=== PATIENT | male | born 1995 | race Asian ===

== ENCOUNTER 2018-03-24 11:43 | Emergency (ER) | payer OTHER ==
[~2018-03-24 11:43] MED LIST: AMOX-362 PO; [UNRECOGNIZED DRUG - OTHER]; [UNRECOGNIZED DRUG - OTHER]
--- NOTE | 2018-03-24 11:46 | ER Report ---
History and Physical Time Seen By MD: 11:46 HPI/ROS CHIEF COMPLAINT: Suicidal and homicidal ideation HISTORY OF PRESENT ILLNESS: This is a 22 year old male who presents to the ED in the custody of police for suicidal and homicidal ideation. 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 According to the PD he did state that he said he was going to slit his professors throat, or stab his professor and then either slit his own throat or wait until the PD showed up and wait for them to shoot him. The thoughts of harming the professor has increased over the last 5-6 weeks. He arrives cooperative. He has been emergency detained by the PD. Patient has also had " two voices in my head", one "good and one bad". No nausea or vomiting. No fevers or chills. Patient states he did have suicidal thoughts when he was in high school in [place]. Denies acting on his suicidal or homicidal thoughts. Has been taking psych Meds from [facility]. REVIEW OF SYSTEMS: Constitutional: No fever, no chills. Eyes: No discharge. ENT: No sore throat. Cardiovascular: No chest pain, no palpitations. Respiratory: No cough, no shortness of breath. Gastrointestinal: No abdominal pain, no vomiting. Genitourinary: No hematuria. Musculoskeletal: No back pain. Skin: No rashes. Neurological: No headache. Psych: As above. Allergies: Coded Allergies: crab (Verified Allergy, Intermediate, EYES SWELL , 03/24/18) Home Meds Discontinued Reported Medications [mywell] No Conflict Check 05/10/17 [lactatam] No Conflict Check 05/10/17 Amoxicillin (AMOXICILLIN) 500 Mg Capsule, 1 CAP PO Q8H, #15 CAPSULE 05/10/17 Past Medical/Surgical History The patient has a past medical and surgical history of previous suicidal ideation. Reviewed Nurses Notes: Yes Hx Substance Use Disorder: No Constitutional Vital Sign - Last 24 Hours 03/24/18 03/24/18 11:46 13:31 Temp 98.6 Pulse 103 88 Resp 20 20 B/P (MAP) 139/83 123/94 (104) Pulse Ox 95 98 O2 Delivery Room Air Physical Exam General Appearance: The patient is alert, has no immediate need for airway protection and no signs of toxicity. Eyes: Pupils equal and round no pallor or injection. ENT, Mouth: Mucous membranes are moist. Respiratory: There are no retractions, lungs are clear to auscultation. Cardiovascular: Regular rate and rhythm. Gastrointestinal: Abdomen is soft and non tender, no masses, bowel sounds normal. Neurological: Alert and oriented 4. Moving all extremities. Following all commands. No focal neuro deficits. Skin: Warm and dry, no rashes. Musculoskeletal: Neck is supple non tender. Extremities are nontender, nonswollen and have full range of motion. Psych: Making good eye contact, good conversation, very forthcoming with his past medical history and his current thoughts. DIFFERENTIAL DIAGNOSIS: After history and physical exam differential diagnosis was considered for depression, anxiety, schizophrenia and bipolar disorder. Medical Decision Making Data Points Result Diagram: 03/24/18 1228 03/24/18 1228 Laboratory Hematology Test 03/24/18 12:28 03/24/18 13:01 Red Blood Count 5.22 M/uL (4.00-5.60) Mean Corpuscular Volume 92.0 fL (80.0-96.0) Mean Corpuscular Hemoglobin 30.9 pg (26.0-33.0) Mean Corpuscular Hemoglobin Concent 33.5 g/dL (32.0-36.0) Red Cell Distribution Width 12.4 % (11.5-14.5) Mean Platelet Volume 8.2 fL (7.2-11.1) Neutrophils (%) (Auto) 67.4 % (39.4-72.5) Lymphocytes (%) (Auto) 24.8 % (17.6-49.6) Monocytes (%) (Auto) 6.0 % (4.1-12.4) Eosinophils (%) (Auto) 1.0 % (0.4-6.7) Basophils (%) (Auto) 0.8 % (0.3-1.4) Nucleated RBC Relative Count (auto) 0.0 /100WBC Neutrophils # (Auto) 3.1 K/uL (2.0-7.4) Lymphocytes # (Auto) 1.1 K/uL (1.3-3.6) Monocytes # (Auto) 0.3 K/uL (0.3-1.0) Eosinophils # (Auto) 0.0 K/uL (0.0-0.5) Basophils # (Auto) 0.0 K/uL (0.0-0.1) Nucleated RBC Absolute Count (auto) 0.00 K/uL Sodium Level 138 mmol/L (137-145) Potassium Level 3.6 mmol/L (3.5-5.0) Chloride Level 103 mmol/L (98-107) Carbon Dioxide Level 27 mmol/L (22-30) Blood Urea Nitrogen 12 mg/dl (9-21) Creatinine 1.00 mg/dl (0.66-1.25) Glomerular Filtration Rate Calc > 60.0 Random Glucose 96 mg/dl (75-110) Calcium Level 9.0 mg/dl (8.4-10.2) Magnesium Level 1.9 mg/dl (1.7-2.2) Total Bilirubin 1.0 mg/dl (0.2-1.3) Aspartate Amino Transf (AST/SGOT) 24 U/L (0-35) Alanine Aminotransferase (ALT/SGPT) 24 U/L (0-56) Alkaline Phosphatase 59 U/L (0-126) Total Protein 7.5 g/dl (6.3-8.2) Albumin 4.1 g/dl (3.5-5.0) Thyroid Stimulating Hormone (TSH) 1.30 uIU/ml (0.46-4.68) Salicylates Level < 10 mg/L Salicylate Last Dose Date unk Acetaminophen Level < 10 ug/ml Serum Alcohol < 10 mg/dl Urine Color Yellow Urine Clarity Clear Urine pH 7.0 pH (4.8-9.5) Urine Specific [place] 1.012 Urine Protein Negative mg/dL (NEGATIVE) Urine Glucose (UA) Negative mg/dL (NEGATIVE) Urine Ketones Trace mg/dL (NEGATIVE) Urine Blood Negative (NEGATIVE) Urine Nitrite Negative (NEGATIVE) Urine Bilirubin Negative (NEGATIVE) Urine Urobilinogen Negative mg/dL (0.2-1.9) Urine Leukocyte Esterase Negative (NEGATIVE) Urine RBC <1 /HPF (0-2/HPF) Urine WBC <1 /HPF (0-5/HPF) Urine Squamous Epithelial Cells None /LPF (</=FEW) Urine Bacteria Negative /HPF (NONE-FEW) Urine Mucus None /HPF (NONE-FEW) Urine Opiates Screen Negative Urine Barbiturates Screen Negative Ur Tricyclic Antidepressants Screen Negative Urine Phencyclidine Screen Negative Urine Amphetamines Screen Negative Urine Benzodiazepines Screen Negative Urine Cocaine Screen Negative Urine Cannabinoids Screen Negative Chemistry Test 03/24/18 12:28 03/24/18 13:01 White Blood Count 4.6 k/uL (4.5-11.0) Red Blood Count 5.22 M/uL (4.00-5.60) Hemoglobin 16.1 g/dL (14.0-18.0) Hematocrit 48.0 % (42.0-52.0) Mean Corpuscular Volume 92.0 fL (80.0-96.0) Mean Corpuscular Hemoglobin 30.9 pg (26.0-33.0) Mean Corpuscular Hemoglobin Concent 33.5 g/dL (32.0-36.0) Red Cell Distribution Width 12.4 % (11.5-14.5) Platelet Count 226 K/uL (150-450) Mean Platelet Volume 8.2 fL (7.2-11.1) Neutrophils (%) (Auto) 67.4 % (39.4-72.5) Lymphocytes (%) (Auto) 24.8 % (17.6-49.6) Monocytes (%) (Auto) 6.0 % (4.1-12.4) Eosinophils (%) (Auto) 1.0 % (0.4-6.7) Basophils (%) (Auto) 0.8 % (0.3-1.4) Nucleated RBC Relative Count (auto) 0.0 /100WBC Neutrophils # (Auto) 3.1 K/uL (2.0-7.4) Lymphocytes # (Auto) 1.1 K/uL (1.3-3.6) Monocytes # (Auto) 0.3 K/uL (0.3-1.0) Eosinophils # (Auto) 0.0 K/uL (0.0-0.5) Basophils # (Auto) 0.0 K/uL (0.0-0.1) Nucleated RBC Absolute Count (auto) 0.00 K/uL Glomerular Filtration Rate Calc > 60.0 Calcium Level 9.0 mg/dl (8.4-10.2) Magnesium Level 1.9 mg/dl (1.7-2.2) Total Bilirubin 1.0 mg/dl (0.2-1.3) Aspartate Amino Transf (AST/SGOT) 24 U/L (0-35) Alanine Aminotransferase (ALT/SGPT) 24 U/L (0-56) Alkaline Phosphatase 59 U/L (0-126) Total Protein 7.5 g/dl (6.3-8.2) Albumin 4.1 g/dl (3.5-5.0) Thyroid Stimulating Hormone (TSH) 1.30 uIU/ml (0.46-4.68) Salicylates Level < 10 mg/L Salicylate Last Dose Date unk Acetaminophen Level < 10 ug/ml Serum Alcohol < 10 mg/dl Urine Color Yellow Urine Clarity Clear Urine pH 7.0 pH (4.8-9.5) Urine Specific [place] 1.012 Urine Protein Negative mg/dL (NEGATIVE) Urine Glucose (UA) Negative mg/dL (NEGATIVE) Urine Ketones Trace mg/dL (NEGATIVE) Urine Blood Negative (NEGATIVE) Urine Nitrite Negative (NEGATIVE) Urine Bilirubin Negative (NEGATIVE) Urine Urobilinogen Negative mg/dL (0.2-1.9) Urine Leukocyte Esterase Negative (NEGATIVE) Urine RBC <1 /HPF (0-2/HPF) Urine WBC <1 /HPF (0-5/HPF) Urine Squamous Epithelial Cells None /LPF (</=FEW) Urine Bacteria Negative /HPF (NONE-FEW) Urine Mucus None /HPF (NONE-FEW) Urine Opiates Screen Negative Urine Barbiturates Screen Negative Ur Tricyclic Antidepressants Screen Negative Urine Phencyclidine Screen Negative Urine Amphetamines Screen Negative Urine Benzodiazepines Screen Negative Urine Cocaine Screen Negative Urine Cannabinoids Screen Negative Toxicology Test 03/24/18 12:28 03/24/18 13:01 Salicylates Level < 10 mg/L Salicylate Last Dose Date unk Acetaminophen Level < 10 ug/ml Serum Alcohol < 10 mg/dl Urine Opiates Screen Negative Urine Barbiturates Screen Negative Ur Tricyclic Antidepressants Screen Negative Urine Phencyclidine Screen Negative Urine Amphetamines Screen Negative Urine Benzodiazepines Screen Negative Urine Cocaine Screen Negative Urine Cannabinoids Screen Negative Urinalysis Test 03/24/18 13:01 Urine Color Yellow Urine Clarity Clear Urine pH 7.0 pH (4.8-9.5) Urine Specific [place] 1.012 Urine Protein Negative mg/dL (NEGATIVE) Urine Glucose (UA) Negative mg/dL (NEGATIVE) Urine Ketones Trace mg/dL (NEGATIVE) Urine Blood Negative (NEGATIVE) Urine Nitrite Negative (NEGATIVE) Urine Bilirubin Negative (NEGATIVE) Urine Urobilinogen Negative mg/dL (0.2-1.9) Urine Leukocyte Esterase Negative (NEGATIVE) Urine RBC <1 /HPF (0-2/HPF) Urine WBC <1 /HPF (0-5/HPF) Urine Squamous Epithelial Cells None /LPF (</=FEW) Urine Bacteria Negative /HPF (NONE-FEW) Urine Mucus None /HPF (NONE-FEW) ED Course/Re-evaluation ED Course The patient was admitted to a room. History of this were obtained. Differential diagnoses were considered. Psych panel was obtained, studies unremarkable. A, negative tox screen. I did a pulled the detainment from the [facility] department, I did speak with Dr. Veras regarding the patient's case, she is accepted the patient to the behavioral health unit. Patient has been co operative while in the ED. Patient does understand that he has been detained, his rights have been read to him by the Police Department. The patient had no other questions or concerns at this time and was admitted to the BH unit. 03/24/2018 1:15:42 pm I did speak with Dr. Veras regarding the patient's case, she is accepted the patient into the behavioral health unit, the patient understands that he'll be going to the BHU units and is detained. Decision to Disposition Date: Mar 24, 2018 Decision to Disposition Time: 13:15 Depart Departure Latest Vital Signs Vital Signs Date Time Temp Pulse Resp B/P (MAP) Pulse Ox O2 Delivery O2 Flow Rate FiO2 03/24/18 13:31 88 20 123/94 (104) 98 03/24/18 11:46 98.6 Room Air Impression: Primary Impression: Homicidal ideations Additional Impression: Suicidal ideations Condition: Condition Unchanged Disposition: XFER TO [facility] New Scripts No Active Prescriptions or Reported Meds Problem Qualifiers DELISA JONAS PIPELINE GANG SUPERVISOR-BC Mar 24, 2018 11:46
[2018-03-24 12:49] LABS: PLATELET COUNT, AUTOMATED 226 K/uL (150-450)
--- NOTE | 2018-03-24 12:49 | BHS - Psychiatric Evaluation ---
ER - Title 25 MHE Evaluation Title 25 Evaluation Patient Detained By: Other (Nurse practitioner) Referral Source: [facility] PD Date Patient Detained: Mar 24, 2018 Time Patient Detained: 11:53 Date Retirement Expires: Mar 27, 2018 Time Retirement Expires: 11:53 Legal Status: Police Hold: Yes Legal Status: Residence: Student Assessment Data Provided By: Law Enforcement, Therapist HPI/ROS: This is a 22 year old male who presents to the ED in the custody of police for suicidal and homicidal ideation. 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 According to the PD he did state that he said he was going to slit his professors throat, or stab his professor and then either slit his own throat or wait until the PD showed up and wait for them to shoot him. The thoughts of harming the professor has increased over the last 5-6 weeks. He arrives cooperative. He has been emergency detained by the PD. Patient has also had " two voices in my head", one "good and one bad". No nausea or vomiting. No fevers or chills. Patient states he did have suicidal thoughts when he was in high school in [place]. Denies acting on his suicidal or homicidal thoughts. Has been taking psych Meds from [facility]. Admit due to SI or Attempt: Yes (and Homicidal) Suicide Plan: No Plan Alcohol or Drugs Involved: No Is Patient Info Reliable: Yes Is Collateral Info Reliable: Yes Mental Status Exam General Appearance: Casual, Well Groomed, Good Eye Contact, Cooperative, Polite, Good Interaction Speech: Clear, Spontaneous, Normal Rate, Normal Rhythm, Normal Volume, Normal Tone Mood: No Dysthmic/Depressed, No Euthymic, No Hyperthymic, No Other Affect: Full and Appropriate Thought Process: Organized, Logical, Goal Directed Thought Content: Suicidal Ideation, Homicidal Ideation Sensorium: Clear Cognition: Alert & Oriented-Person, Alert & Oriented-Place, Alert & Oriented- Time, Lubbn-Ljbtdeuw-Sxwnwfgbs Memory: Immediate Insight Judgment: Intact, Appropriate Sleep: Normal Hallucinations: Auditory (states good and bad voices) Delusions: Denies Current Risk & History Current Dangerous Risk Assessm: Current Suicide Ideation, Homicidal Ideation Past Dangerous Risk Assessm: Suicide Ideation-last 6mo Previous Suicide Attempt: No Previous Attempt Previous Psychiatric Illness: Yes Previous Psychiatric Treatment: Yes (medications from [facility]) Risk Assessment & Disposition Evaluated Risk Assessment: The patient is cooperative, he does admit to suicidal and homicidal thoughts, with at least two voices that he hears, one good and one bad. With his admission of suicidal and homicidal thoughts, it is in the patients best interest to go to the behavioral health unit for a more intensive treatment and monitoring. Impression: Primary Impression: Suicidal ideations Additional Impression: Homicidal ideations Meets Mental Illness Req.: Yes Meets Dangerousness Req.: Yes Emergency Retirement to be: Upheld Date of Decision: Mar 24, 2018 Time of Decision: 12:45 Patient is Medically Stable at: Yes Disposition: [facility] Problem Qualifiers DELISA JONAS [employer] EXTENSION AGENT-BC Mar 24, 2018 12:49
[2018-03-24 13:31] VITALS: BP 123/94
[2018-03-24] MEDS ORDERED: ESCI20TA38 PO (15:59)
== END 2018-03-24 13:40 ==
LOC: ER 11:49
DX: R45.850 Homicidal ideations (principal); R45.851 Suicidal ideations
CPT/HCPCS: 36415; 80305; 80320; 80329; 81001; 82040; 82247; 82310; 82374; 82435; 82565; 82947; 83735; 84075; 84132; 84155; 84295; 84443; 84450; 84460; 84520; 85025; 99284

== ENCOUNTER 2018-03-24 13:30 | Inpatient (IN) | payer OTHER ==
[~2018-03-24] VITALS: Ht 170.2 cm; Wt 54.9 kg
[2018-03-24] MEDS ORDERED: MAG HYD/AL HYD/SIMETH 30ML UDC PO PRN (14:05)
[2018-03-24] MEDS ORDERED: ACETAMINOPHEN 325 MG TAB PO PRN (14:05)
[2018-03-24] MEDS ORDERED: hydrOXYzine PAMOATE 25 MG CAP PO PRN (14:05)
[2018-03-24 15:17] VITALS: BP 132/92
[2018-03-24] MEDS ORDERED: ESCI20TA38 PO (15:59)
[2018-03-25 06:35] VITALS: BP 118/79
[2018-03-25] MEDS ORDERED: ESCITALOPRAM OXALATE 10 MG TAB PO SCH (09:00)
[2018-03-25] MEDS: MULTIVITAMINS PO SCH (09:00)
[2018-03-25] MEDS: SERTRALINE HCL 50 MG TAB PO SCH (11:25)
[2018-03-25 13:10] VITALS: BP 133/81
--- NOTE | 2018-03-25 16:40 | HISTORY AND PHYSICAL ---
DATE OF ADMISSION: March 24, 2018 ATTENDING PHYSICIAN Koki Veras MD The patient was interviewed at 10:00 a.m. on March 25, 2018, for this dictation. 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 The patient went to [facility] yesterday and reported homicidal ideation toward a specific professor as well as suicidal ideation. Therefore, the campus police were contacted, and they initiated the alf and brought him to the hospital. The patient was pleasant and cooperative in the Emergency Room and brought to [facility] without incident. Today, he acknowledges to us that he has been having suicidal ideation on and off over several months. He says that he gets depressed when he feels like his piano playing is not up to his standards, and he feels down on himself and has thoughts of suicide. In addition, he says that about 4-5 weeks ago he had homicidal ideation towards his special education math teacher with thoughts of stabbing her and then killing himself either by jumping out a window or by waiting for the police to come and then getting the police to shoot him. The patient does acknowledge feeling stressed recently regarding his piano playing. He feels a great deal of pressure to do well, and he feels like his playing is not as good as he would like it to be. He feels that this professor is not able to help him as much as he would like. This particular professor is the one that recruited him to come from [facility] to , and he feels frustrated with her because she makes him feel more stressed about his playing, he feels that her teaching style does more harm than good. The patient did talk about voices or thoughts in his head that told him to harm himself or his professor. Because of the language difference, it is difficult to understand him completely, but it sounds like these are not auditory hallucinations, but rather are his own thoughts and his own internal dialogue. The patient has had depression in the past and took Lexapro for about six months two years ago when living in [facility]. He felt that this medicine did help with the depression, but made him feel too flat or blunted, he felt like he could not concentrate while on it. He does have some Lexapro with him, but he has not been taking it recently. The patient has never had suicide attempt in the past. He has never had homicidal ideation in the past. He has never been aggressive towards others. He says that he has been sleeping well and eating well. His girlfriend reported that he has been more lester, irritable, and dramatic in the past two weeks. She also acknowledges that he has never been aggressive. She says that he tends to be very hard on himself and blames himself for not doing well in his studies of the piano. PAST PSYCHIATRIC HISTORY The patient did experience a depression in [facility] during his senior year of undergraduate education. He took Lexapro for about six months which was helpful. He has never been hospitalized and never had outpatient therapy. He has never had a suicide attempt. FAMILY PSYCHIATRIC HISTORY His father takes Lexapro and has done so for approximately 20 years. No other known family history. PAST MEDICAL HISTORY Negative. The patient is healthy. SOCIAL HISTORY The patient was born and raised in [facility]. His parents were and still are. He is the only child. He started playing piano in first grade. He was a good student throughout high school and college. His father is a police sergeant, and his mother is a homemaker. He never suffered from any abuse. He has never been arrested. He came to the to study for a master's degree in piano last year. He has completed one year of a two-year program. He lives with his girlfriend and a roommate in the [facility]. He is unemployed and is a full-time student currently. LEGAL HISTORY He has never been arrested. VICTIM ISSUES He denies any history of sexual or physical abuse. SUBSTANCE ABUSE HISTORY The patient drinks a very small amount of alcohol, perhaps once a month. PHYSICAL EXAMINATION Please see the emergency room physician's report. VITAL SIGNS: Temperature 98.1, pulse 86, blood pressure 132/92, pulse ox 96% on room air. LABORATORY DATA CBC is within normal limits. Chemistry panel is within normal limits. Thyroid is normal at 1.3. Urine drug screen is negative. Serum alcohol is nil. Urinalysis is normal. MENTAL STATUS EXAMINATION The patient was mildly disheveled, wearing hospital scrubs and glasses. He was cooperative. He displayed normal psychomotor activity. Speech was normal in rate, tone, and volume. He does have an accent, and his command of the [place] language is fair to moderate. He reports his mood as stressed. His affect displays full range. He did not seem particularly depressed and did smile appropriately at times. Thought process is logical and goal directed. Thought content is negative for any current suicidal ideation. He denies any current homicidal ideation at this time, but he readily acknowledges both suicidal and homicidal ideation, saying that the homicidal ideation occurred about 4-5 weeks ago. He denies auditory hallucinations. He describes a voice in his head, but it sounds like what he is describing is more him paying attention to his own thoughts. He denies visual hallucinations. There are no delusions. He is alert and fully oriented to person, place, time, and situation. Memory is intact for immediate, recent, and remote recall. Intelligence is above average based on interview. Insight and judgment are fair. IMPRESSION 1. Adjustment disorder with anxious features. 2. Persistent depressive disorder. 3. Recent suicidal ideation. 4. Recent homicidal ideation. PLAN The patient is admitted to [facility], and he is maintained on suicide precautions. He is also on aggression precautions. He will attend individual and group therapies. We will be in contact with the dean of women and will hold a meeting which will include his girlfriend and a dermatology sales representative from the dean of women office. He will be started on Zoloft since he said the Lexapro made him feel blunted. His estimated length of stay will be three to five days. RAUL
[2018-03-25 21:23] VITALS: BP 126/97
[2018-03-26 03:51] VITALS: BP 128/92
[2018-03-26 05:30] VITALS: BP 94/67
[2018-03-26] MEDS: MULTIVITAMINS PO SCH (09:00)
[2018-03-26] MEDS: SERTRALINE HCL 50 MG TAB PO SCH (09:00)
[2018-03-26 14:10] VITALS: BP 106/89
[2018-03-26] MEDS: lamoTRIgine 25 MG TAB PO SCH (14:36)
--- NOTE | 2018-03-26 15:51 | BHS Progress Note ---
S - Subjective Progress Notes Subjective Pt seen in conference room. Pt had adverse reaction to zoloft-- significant insomnia then a panic attack at about 5am this morning. Vitals were ok (pulse 66), but pt had classic panic symptoms that lasted about 50 mins. Never history of panic attacks prior to this. In pt with agitation to SSRI's, best choice is lamictal, which we discussed including risk of rash. Pt agrees to try lamictal, will start at low dose of 12.5 mg today and see how he tolerates it. We are working closely with to figure out his disposition given their understandable concerns r.e. level of dangerousness of this pt who verbalized HI toward a teacher. Pt has continued to be cooperative, truthful, with good internal consistency in terms of timing and types of symptoms. He freely admits to HI about 4-5 weeks ago, but no intention, and no recurrence of HI since then. He continues NOT to show evidence of psychosis. Suicidal Ideation: None Homicidal Ideation: None [facility] - Objective Physical Exam Vital Signs Vital Signs 03/26/18 03/26/18 05:30 14:10 Temp 98.7 Pulse 91 Resp 18 B/P (MAP) 106/89 (95) Pulse Ox 92 O2 Delivery Room Air Muscle Strength and Tone: WNL Gait and Station: Steady [facility] Medications Reviewed: Side Effects, Benefits of Medication, Risks Allergies Reviewed: Yes Mental Status Exam General Appearance: Casual, Good Eye Contact, Cooperative, Polite, Good Interaction Speech: Clear, Spontaneous, Normal Rate, Normal Rhythm, Normal Volume, Normal Tone, Other (Swazi accent) Mood: Euthymic Affect: Full and Appropriate Thought Process: Organized, Logical, Goal Directed Thought Content: No Suicidal Ideation, No Homicidal Ideation, No Delusions, No Auditory Halllucinations, No Visual Hallucinations, No Thought Broadcasting, No Ideas of Reference, No Obsessions, No Compulsions, No Other Sensorium: Clear Cognition: Alert & Oriented-Person, Alert & Oriented-Place, Alert & Oriented- Time, Ofajx-Ihlafyst-Byjgbshxe Memory: Immediate Intelligence: Above Average Insight Judgment: Fair [facility] Assessment and Plan [id number] Encounter Date: Mar 26, 2018 [id number] Encounter Time: 10:00 [facility] Plan: Admit to Unit, Necessary Precautions, Individual/Group Therapy, Admin/Titrate Meds, Educate Patient Tobacco Medications: Not Appropriate Condition Multpiple Antipsychotics Used: No Problems: (1) Adjustment disorder with mixed anxiety and depressed mood (2) Persistent depressive disorder ROBERT BOOTH MD Mar 26, 2018 15:51
[2018-03-26 22:36] VITALS: BP 128/98
[2018-03-27 06:18] VITALS: BP 127/86
[2018-03-27] MEDS: lamoTRIgine 25 MG TAB PO SCH (08:17)
[2018-03-27] MEDS: MULTIVITAMINS PO SCH (08:17)
--- NOTE | 2018-03-27 13:48 | BHS Progress Note ---
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 Pt reports feeling better today, he has not noticed any side effects to lamictal, he denies rash. Slept well last night. He had a meeting with staff yesterday when they told him he is currently suspended and not allowed on campus while they meet to decide what his status will be. Pt was crying yesterday as he heard that there is possibility that he will not be accepted back to school. He asked good questions like where will he stay if he can't be on campus, and questions about how the process will go forward. He has been pleasant and cooperative here, taking an active role in his treatment, eager to learn relaxation exercises and coping skills for depression. Will continue lamictal at 12.5mg today and tomorrow, then titrate to 25 mg over weekend. Suicidal Ideation: None Homicidal Ideation: None [facility] - Objective Physical Exam Vital Signs Vital Signs 03/26/18 03/27/18 05:30 06:18 Temp 97.5 Pulse 79 Resp 18 B/P (MAP) 127/86 (100) Pulse Ox 97 O2 Delivery Room Air Muscle Strength and Tone: WNL Gait and Station: Steady [facility] Medications Reviewed: Side Effects, Benefits of Medication, Risks Allergies Reviewed: Yes Mental Status Exam General Appearance: Casual, Well Groomed, Good Eye Contact, Cooperative, Thomas te, Good Interaction Speech: Clear, Spontaneous, Normal Rate, Normal Rhythm, Normal Volume, Normal Tone, Other (Turkish accent) Mood: Euthymic Affect: Full and Appropriate, Sad (when talking about the possibility of not being allowed to return to ) Thought Process: Organized, Logical, Goal Directed Thought Content: No Suicidal Ideation, No Homicidal Ideation, No Delusions, No Auditory Halllucinations, No Visual Hallucinations, No Thought Broadcasting, No Ideas of Reference, No Obsessions, No Compulsions, No Other Sensorium: Clear Cognition: Alert & Oriented-Person, Alert & Oriented-Place, Alert & Oriented- Time, Bxksb-Pseopkhs-Lvzonfebd Memory: Immediate Intelligence: Above Average Insight Judgment: Fair [facility] Assessment and Plan Npzc-yv-Adbz Encounter Date: Mar 27, 2018 Uogo-vz-Ngso Encounter Time: 09:00 [facility] Plan: Admit to Unit, Necessary Precautions, Individual/Group Therapy, Admin/Titrate Meds, Educate Patient Tobacco Medications: Not Appropriate Condition Multpiple Antipsychotics Used: No Problems: (1) Adjustment disorder with mixed anxiety and depressed mood (2) Persistent depressive disorder ROBERT BOOTH MD Mar 27, 2018 13:48
[2018-03-27 22:43] VITALS: BP 121/86
[2018-03-28 06:08] VITALS: BP 117/75
[2018-03-28] MEDS: MULTIVITAMINS PO SCH (08:16)
[2018-03-28] MEDS: lamoTRIgine 25 MG TAB PO SCH (08:16)
--- NOTE | 2018-03-28 10:16 | BHS Progress Note ---
[facility] - Subjective Progress Notes Subjective "I feel good, tired. I don't want to hurt anyone else, I asked for help." He denies problems with the current medications. Notes no panic attacks as he had experienced with the SSRI medications. He reports sleeping very well last night. Suicidal Ideation: None Homicidal Ideation: None [facility] - Objective Physical Exam Vital Signs Vital Signs 03/26/18 03/28/18 05:30 06:08 Temp 97.9 Pulse 77 Resp 18 B/P (MAP) 117/75 (89) Pulse Ox 96 O2 Delivery Room Air Muscle Strength and Tone: WNL Gait and Station: Steady [facility] Medications Reviewed: Side Effects, Benefits of Medication, Risks Allergies Reviewed: Yes Mental Status Exam General Appearance: Casual, Well Groomed, Good Eye Contact, Cooperative, Polite, Good Interaction Speech: Clear, Spontaneous, Normal Rate, Normal Rhythm, Normal Volume, Normal Tone, Other (Belarusian accent) Mood: Euthymic Affect: Full and Appropriate, Calm Thought Process: Organized, Logical, Goal Directed Thought Content: No Suicidal Ideation, No Homicidal Ideation, No Delusions, No Auditory Halllucinations, No Visual Hallucinations, No Thought Broadcasting, No Ideas of Reference, No Obsessions, No Compulsions, No Other Sensorium: Clear Cognition: Alert & Oriented-Person, Alert & Oriented-Place, Alert & Oriented- Time, Vpolq-Fpgpdzot-Oqhlmipuj Memory: Immediate Intelligence: Above Average Insight Judgment: Fair [facility] Assessment and Plan Rbxq-ku-Abwa Encounter Date: Mar 28, 2018 Qpnp-mg-Gvoy Encounter Time: 09:00 [facility] Plan: Admit to Unit, Necessary Precautions, Individual/Group Therapy, Admin/Titrate Meds, Educate Patient Tobacco Medications: Not Appropriate Condition Multpiple Antipsychotics Used: No Problems: (1) Adjustment disorder with mixed anxiety and depressed mood Status: Chronic DES LUDWIG NP Mar 28, 2018 10:16
[2018-03-28 13:01] VITALS: BP 142/94
[2018-03-29 06:11] VITALS: BP 95/78
[2018-03-29] MEDS: lamoTRIgine 25 MG TAB PO SCH (08:15)
[2018-03-29] MEDS: MULTIVITAMINS PO SCH (08:15)
[2018-03-29] MEDS ORDERED: lamoTRIgine 25 MG TAB PO ONE (09:00)
--- NOTE | 2018-03-29 13:34 | BHS Progress Note ---
[facility] - Subjective Progress Notes Subjective "Awesome". Client reports that he slept well. He rates depression level a 0 or 1. Anxiety level a 1 or 2. Suicidal thoughts 0. Homicidal thoughts 0. He reports that he had another positive conversation with his parents yesterday who are supportive. Suicidal Ideation: None Homicidal Ideation: None [facility] - Objective Physical Exam Vital Signs Current Medications Medications (Trade) Dose Ordered Sig/Nancy Route PRN Reason Start Time Stop Time Status Last Admin Dose Admin Acetaminophen (Tylenol(*)325 Mg Tab (Or Equiv)) 650 mg Q4H PRN PO HEADACHE 03/24/18 14:05 04/23/18 14:04 Al Hydrox/Mg Hydrox/Simethicone (Maalox(*) 30 ml Udcup (Or Equiv)) 30 ml Q4H PRN PO DYSPEPSIA 03/24/18 14:05 04/23/18 14:04 Multivitamins (Thera-M Enhanced Tab (Or Equiv)) 1 each QDAY PO 03/25/18 09:00 04/24/18 08:59 03/29/18 08:15 Hydroxyzine Pamoate (Vistaril(*) 25 Mg Cap (Or Equiv)) 50 mg Q6H PRN PO ANXIETY/INSOMNIA 03/24/18 14:05 04/23/18 14:04 03/26/18 05:20 Escitalopram Oxalate (Lexapro 10 Mg Tab (Or Equiv)) 10 mg QDAY PO 03/25/18 09:00 03/25/18 10:59 DC Sertraline HCl (Zoloft 50 Mg Tab (Or Equiv)) 25 mg QDAY PO 03/25/18 11:00 03/26/18 10:58 DC 03/25/18 11:25 Lamotrigine (LaMICtal 25 MG TAB (OR EQUIV)) 12.5 mg QAM PO 03/26/18 15:00 04/25/18 14:59 03/29/18 08:15 Lamotrigine (LaMICtal 25 MG TAB (OR EQUIV)) 12.5 mg ONCE ONCE PO 03/29/18 09:00 03/29/18 09:20 DC 03/29/18 09:54 Lamotrigine (LaMICtal 25 MG TAB (OR EQUIV)) 25 mg QAM PO 03/30/18 09:00 04/29/18 08:59 Muscle Strength and Tone: WNL Gait and Station: Steady [facility] Medications Reviewed: Side Effects, Benefits of Medication, Risks Allergies Reviewed: Yes Mental Status Exam General Appearance: Casual, Well Groomed, Good Eye Contact, Cooperative, Polite, Good Interaction Speech: Clear, Spontaneous, Normal Rate, Normal Rhythm, Normal Volume, Normal Tone, Other (Ivorian accent) Mood: Euthymic Affect: Full and Appropriate, Calm Thought Process: Organized, Logical, Goal Directed Thought Content: No Suicidal Ideation, No Homicidal Ideation, No Delusions, No Auditory Halllucinations, No Visual Hallucinations, No Thought Broadcasting, No Ideas of Reference, No Obsessions, No Compulsions, No Other Sensorium: Clear Cognition: Alert & Oriented-Person, Alert & Oriented-Place, Alert & Oriented- Time, Nyjux-Svvztuaw-Potleshji Memory: Immediate Intelligence: Above Average Insight Judgment: Fair [facility] Assessment and Plan Hojf-oj-Wuly Encounter Date: Mar 29, 2018 Pthb-om-Waki Encounter Time: 08:30 [facility] Plan: Admit to Unit, Necessary Precautions, Individual/Group Therapy, Admin/Titrate Meds, Educate Patient Tobacco Medications: Not Appropriate Condition Multpiple Antipsychotics Used: No Problems: (1) Adjustment disorder with mixed anxiety and depressed mood Status: Chronic Condition Client is denying problems with the lamictal and reports feeling better in terms of mood. He denies panic attacks since starting the lamictal. He denies SI/HI. He appears to have an understanding that his title 25 hearing is Friday and that he will meet with the treatment team and the clinical research coordinator Friday. He has been very pleasant, and cooperative throughout his stay. DES LUDWIG NP Mar 29, 2018 13:34
[2018-03-29 15:20] VITALS: BP 116/66
[2018-03-30 06:22] VITALS: BP 98/65
[2018-03-30] MEDS: MULTIVITAMINS PO SCH (08:12)
[2018-03-30] MEDS: lamoTRIgine 25 MG TAB PO SCH (08:12)
--- NOTE | 2018-03-30 11:06 | BHS Progress Note ---
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 Patient denies any depressive symptoms today, and adamantly denies any homicidal thoughts toward anyone. Girlfriend of one year, with whom the patient lives, states patient is not a violent man, and describes normal interactions during disagreements that they have. During patient's stay here he has been very comparative, and would seem to be an accurate historian. At this point will continue previous kaylin mmendation by last weeks, provider to return to school, if allowed to. Patient will remain here on the unit, but will be under an extended initial emergency detainment. Housing remains a concern, if patient is not allowed on campus. Appetite, sleep and mood good today. Patient denies any other concerns. Will continue current medication regimen. Suicidal Ideation: None Homicidal Ideation: None [facility] - Objective Physical Exam Vital Signs Vital Signs Date Time Temp Pulse Resp B/P (MAP) Pulse Ox O2 Delivery O2 Flow Rate FiO2 03/30/18 06:22 97.5 72 15 98/65 (76) 97 Room Air Muscle Strength and Tone: WNL Gait and Station: Steady [facility] Medications Reviewed: Side Effects, Benefits of Medication, Risks Allergies Reviewed: Yes Mental Status Exam General Appearance: Casual, Well Groomed, Good Eye Contact, Cooperative, Polite, Good Interaction; No Unkept, No Tearful, No Psychomotor Agitation, No Psychomotor Retardation, No Bizarre Mannerisms, No Tics Speech: Clear, Spontaneous, Normal Rate, Normal Rhythm, Normal Volume, Normal Tone; No Delayed, No Slurred, No Garbled, No Rambling, No Inappropriate; Other (Gambian accent) Mood: Euthymic Affect: Full and Appropriate, Calm; No Withdrawn, No Tearful, No Anxious, No Agitated Thought Process: Organized, Logical, Goal Directed; No Loose Associations, No Flight of Ideas Thought Content: No Suicidal Ideation, No Homicidal Ideation, No Delusions, No Auditory Halllucinations, No Visual Hallucinations, No Thought Broadcasting, No Ideas of Reference, No Obsessions, No Compulsions, No Other Sensorium: Clear Cognition: Alert & Oriented-Person, Alert & Oriented-Place, Alert & Oriented- Time, Cuaer-Ledkbxgv-Elynlsysh Memory: Immediate, Recent Intelligence: Above Average Insight Judgment: Fair (patient taking an active role in his treatment. ) [facility] Assessment and Plan Kspx-up-Fihn Encounter Date: Mar 30, 2018 Uync-hw-Tnll Encounter Time: 08:40 [facility] Plan: Admit to Unit, Necessary Precautions, Individual/Group Therapy, Admin/Titrate Meds, Educate Patient Tobacco Medications: Not Appropriate Condition Multpiple Antipsychotics Used: No Problems: (1) Adjustment disorder with mixed anxiety and depressed mood Status: Acute (2) Persistent depressive disorder Status: Chronic Condition 1. Patient can return home, if university allows. 2. Recommend patient be allowed to return to complete his studies. 3. Patient will continue in outpatient treatment, upon discharge. 4. recommend that patient be allowed to return to living on campus. FIDELIA AYALA MD Mar 30, 2018 11:06
[2018-03-30 13:26] VITALS: BP 102/68
[2018-03-30 22:18] VITALS: BP 128/93
[2018-03-31 06:27] VITALS: BP 106/75
[2018-03-31] MEDS: lamoTRIgine 25 MG TAB PO SCH (08:19)
[2018-03-31] MEDS: MULTIVITAMINS PO SCH (08:19)
[2018-03-31] MEDS: CHOLECALCIFEROL 1000 UNIT TAB PO SCH (08:19)
--- NOTE | 2018-03-31 12:04 | BHS Progress Note ---
[facility] - Subjective Progress Notes Subjective Patient continues to tolerate frustration of current circumstance well, showing no para-suicidal behaviors nor aggression. 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 Patient feels he has been misunderstood, and that many other students suffer needlessly at the hand of a particular professor. Patient denies any other psychiatric concerns, will continue to have on unit and await university decision. patient remains under emergency detainment. Suicidal Ideation: None Homicidal Ideation: None [facility] - Objective Physical Exam Vital Signs Vital Signs Date Time Temp Pulse Resp B/P (MAP) Pulse Ox O2 Delivery O2 Flow Rate FiO2 03/31/18 06:27 97.1 60 15 106/75 (85) 95 Room Air Muscle Strength and Tone: WNL Gait and Station: Steady [facility] Medications Reviewed: Side Effects, Benefits of Medication, Risks Allergies Reviewed: Yes Mental Status Exam General Appearance: Casual, Well Groomed, Good Eye Contact, Cooperative, Polite, Good Interaction; No Unkept, No Tearful, No Psychomotor Agitation, No Psychomotor Retardation, No Bizarre Mannerisms, No Tics Speech: Clear, Spontaneous, Normal Rate, Normal Rhythm, Normal Volume, Normal Tone; No Delayed, No Slurred, No Garbled, No Rambling, No Inappropriate; Other (Bolivian accent) Mood: Euthymic Affect: Full and Appropriate, Calm; No Withdrawn, No Tearful, No Anxious, No Agitated Thought Process: Organized, Logical, Goal Directed; No Loose Associations, No Flight of Ideas Thought Content: No Suicidal Ideation, No Homicidal Ideation, No Delusions, No Auditory Halllucinations, No Visual Hallucinations, No Thought Broadcasting, No Ideas of Reference, No Obsessions, No Compulsions, No Other Sensorium: Clear Cognition: Alert & Oriented-Person, Alert & Oriented-Place, Alert & Oriented- Time, Oipvo-Jwgtcplc-Wpbazkxov Memory: Immediate, Recent, Remote Intelligence: Above Average Insight Judgment: Fair (patient taking an active role in his treatment. ) [facility] Assessment and Plan Dlsi-tl-Ruhw Encounter Date: Mar 31, 2018 Cbaj-qw-Rqrk Encounter Time: 10:30 [facility] Plan: Admit to Unit, Necessary Precautions, Individual/Group Therapy, Admin/Titrate Meds, Educate Patient Tobacco Medications: Not Appropriate Condition Multpiple Antipsychotics Used: No Problems: (1) Adjustment disorder with mixed anxiety and depressed mood Status: Acute (2) Persistent depressive disorder Status: Chronic Condition 1. continue treatment. 2. recommend that university allow student to return. 3. no medication changes. FIDELIA AYLAA MD Mar 31, 2018 12:04
[2018-03-31 22:12] VITALS: BP 125/91
[2018-04-01 06:31] VITALS: BP 104/59
[2018-04-01] MEDS: MULTIVITAMINS PO SCH (08:19)
[2018-04-01] MEDS: lamoTRIgine 25 MG TAB PO SCH (08:19)
[2018-04-01] MEDS: CHOLECALCIFEROL 1000 UNIT TAB PO SCH (08:19)
--- NOTE | 2018-04-01 09:44 | BHS Progress Note ---
[facility] - Subjective Progress Notes Subjective Patient continues to interact well on the unit, and takes an active role in his treatment. Mood remains stable, and patient indicates an ability to tolerate stressors of possible expulsion from the university. Will work for finding adequate housing for this patient off campus, and proceed with hearing on Friday for likely discharge to off campus living to await college decision. Patient exhibiting no para-suicidal or aggression toward staff or others. Appetite and sleep intact, mood frustrated somewhat with ongoing situation, but otherwise good. Suicidal Ideation: None Homicidal Ideation: None [facility] - Objective Physical Exam Vital Signs Vital Signs Date Time Temp Pulse Resp B/P (MAP) Pulse Ox O2 Delivery O2 Flow Rate FiO2 04/01/18 06:31 97.9 73 15 104/59 (74) 97 Room Air Muscle Strength and Tone: WNL Gait and Station: Steady [facility] Medications Reviewed: Side Effects, Benefits of Medication, Risks Allergies Reviewed: Yes Mental Status Exam General Appearance: Casual, Well Groomed, Good Eye Contact, Cooperative, Polite, Good Interaction; No Unkept, No Tearful, No Psychomotor Agitation, No Psychomotor Retardation, No Bizarre Mannerisms, No Tics Speech: Clear, Spontaneous, Normal Rate, Normal Rhythm, Normal Volume, Normal Tone; No Delayed, No Slurred, No Garbled, No Rambling, No Inappropriate; Other (Nigerien accent) Mood: Euthymic (frustration with situation ongoing) Affect: Full and Appropriate, Calm; No Withdrawn, No Tearful, No Anxious, No Agitated Thought Process: Organized, Logical, Goal Directed; No Loose Associations, No Flight of Ideas Thought Content: No Suicidal Ideation, No Homicidal Ideation, No Delusions, No Auditory Halllucinations, No Visual Hallucinations, No Thought Broadcasting, No Ideas of Reference, No Obsessions, No Compulsions, No Other Sensorium: Clear Cognition: Alert & Oriented-Person, Alert & Oriented-Place, Alert & Oriented- Time, Lxscg-Tfjnlmxr-Jnywqxhbk Memory: Immediate, Recent, Remote Intelligence: Above Average Insight Judgment: Fair (patient taking an active role in his treatment. ) [facility] Assessment and Plan Ihhy-tt-Ggpy Encounter Date: Apr 01, 2018 Usfd-qg-Cymh Encounter Time: 09:00 [facility] Plan: Admit to Unit, Necessary Precautions, Individual/Group Therapy, Admin/Titrate Meds, Educate Patient Tobacco Medications: Not Appropriate Condition Multpiple Antipsychotics Used: No Problems: (1) Adjustment disorder with mixed anxiety and depressed mood Status: Acute (2) Persistent depressive disorder Status: Chronic Condition 1. continue treatment. 2. set up [address] hearing. 3. no medication changes. FIDELIA AYALA MD Apr 01, 2018 09:44
[2018-04-01 13:15] VITALS: BP 117/67
--- NOTE | 2018-04-01 21:45 | BHS - Psychiatric Evaluation ---
Title 25 Evaluation Hearing Report: 109 Date of Report: Apr 01, 2018 Examiner: Cely Peterson M.S., L[facility] Patient Detained By: Law Enforcement ([facility]) Date Patient Detained: Mar 24, 2018 Time Patient Detained: 11:31 Date Skilled Nursing Expires: Apr 06, 2018 Legal Status: Police Hold: Yes Legal Status: Relationship: Single Legal Status: Residence: Student Referral Source: Professional: [facility] Assessment Data Provided By: Patient, Friend(s) (Patient's girlfriend), Other Source ([facility] and [facility] clinical professionals) Chief Complaint: Patient detained after going to [place] and reporting some mood dysr egulation and expressing some danger to self and others. As a precaution for expressed statements of harm to self and others and related to a language barrier, patient is brought to ER at [facility] for care. Diagnosis: Adjustment Disorder with Depressed Mood and Persistent Depressive Disorder, No psychosis or personality disorder Risk Formulation: Proceed with hearing on Friday for likely discharge to off campus living to await college decision. 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 All accounts and presentati on have been consistent while patient has been on [facility] unit. Reliability of Collateral Info Patient girl friend seems to be a reliable collateral report. No report from her of past agitation or aggression of patient. They interact on the unit in spontaneous and respectful manner. Current Dangerous Risk Assess: Current Suicide Ideation (Reports no current ideation.) Current Risk Summary: Low risk currently. Patient mood is stable, and he tolerates frustration of possible expulsion with some worry but is able to express that worry. Past Dangerous Risk Assess: Suicide Ideation-last 6mo (Patient acknowledged deep depression, frustration, and hopelessness. he says it was especially prominent six weeks ago.) S - Exam Physical Exam Vital Signs Vital Signs 04/01/18 04/01/18 06:31 13:15 Temp 99.6 Pulse 91 Resp 15 B/P (MAP) 117/67 (84) Pulse Ox 94 O2 Delivery Room Air Mental Status Exam General Appearance: Casual, Well Groomed, Good Eye Contact, Cooperative, Polite, Good Interaction; No Unkept, No Tearful, No Psychomotor Agitation, No Psychomotor Retardation, No Bizarre Mannerisms, No Tics Speech: Clear, Spontaneous, Normal Rate, Normal Rhythm, Normal Volume, Normal Tone; No Delayed, No Slurred, No Garbled, No Rambling, No Inappropriate; Other (Bangladeshi accent) Mood: Euthymic (Frustration with situation ongoing) Affect: Full and Appropriate, Calm; No Withdrawn, No Tearful, No Anxious, No Agitated Thought Process: Organized, Logical, Goal Directed; No Loose Associations, No Flight of Ideas Thought Content: No Suicidal Ideation, No Homicidal Ideation, No Delusions, No Auditory Halllucinations, No Visual Hallucinations, No Thought Broadcasting, No Ideas of Reference, No Obsessions, No Compulsions, No Other Sensorium: Clear Cognition: Alert & Oriented-Person, Alert & Oriented-Place, Alert & Oriented- Time, Aohel-Dudgcthm-Jllzopoqs Memory: Immediate, Recent, Remote Intelligence: Above Average Insight Judgment: Fair (Patient taking an active role in his treatment.) Sleep: Normal Care & Behavior on Unit Treatment Team Participation: Per treating physician, Dr. Artie Gabriel, "Patient continues to interact well on the unit, and takes an active role in his treatment. Mood remains stable, and patient indicates an ability to tolerate stressors of possible expulsion from the university. Will work for finding adequate housing for this patient off campus, and proceed with hearing on Friday for likely discharge to off campus living to await college decision. Patient exhibiting no para-suicidal or aggression toward staff or others. Appetite and sleep intact, mood frustrated somewhat with ongoing situation, but otherwise good." Group Attendance: Consistent and utilizes group as a resource to him. Current Medications: Lamictal Pt. Taking Meds Voluntarily: Yes Medication Aherence: Consistent Title 25 History Psychiatric History: Ongoing mild depressive disorder that was first treated in [facility] three years ago. At that time, he was prescribed mood medication Lexapro. Prior Hospitalizations: Patient reports no psychiatric hospitalizations. 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 Trauma/Abuse History: Reports no traumatic history. Drug & Alcohol Use: Patient has no drug history and has tried alcohol in very small amounts. Reports consuming no more often than 1x monthly. Current Living Situation: Currently student is living in student housing. Current Support System: Patient has girl friend and roommate who are supportive. Employment Issues: Patient is a full-time student. Patient Strengths: Patient is congenial, seems to have adequate distress tolerance to current stressors. Relevant Medications: Lexapro CELY ESTRELLA LPC Apr 01, 2018:45
[2018-04-01 22:36] VITALS: BP 129/100
[2018-04-02 06:29] VITALS: BP 103/61
[2018-04-02] MEDS: lamoTRIgine 25 MG TAB PO SCH (08:20)
[2018-04-02] MEDS: CHOLECALCIFEROL 1000 UNIT TAB PO SCH (08:20)
[2018-04-02] MEDS: MULTIVITAMINS PO SCH (08:20)
--- NOTE | 2018-04-02 11:15 | [facility] Progress Note ---
S - Subjective Progress Notes Subjective Patient remains very cooperative on the unit, able and desiring to go to atrium and play the piano in the hospital. Patient remains very polite with staff and other patients, no para-suicidal behaviors, or homicidal ideation. It is the recommendation of this provider that patient be discharged tomorrow to live with a friend off campus, as he awaits university decision on if he can be allowed to return to campus to complete his studies. Patient remains very tolerant of frustration of circumstances regarding current conflict with university. Jarek julia is considered a minimal risk to himself or others. Appetite and sleep remain good. No other concerns. May look into increasing Lamictal today. Suicidal Ideation: None Homicidal Ideation: None [facility] - Objective Physical Exam Vital Signs Vital Signs Date Time Temp Pulse Resp B/P (MAP) Pulse Ox O2 Delivery O2 Flow Rate FiO2 04/02/18 06:29 97.9 62 15 103/61 (75) 94 Room Air Muscle Strength and Tone: WNL Gait and Station: Steady [facility] Medications Reviewed: Side Effects, Benefits of Medication, Risks Allergies Reviewed: Yes Mental Status Exam General Appearance: Casual, Well Groomed, Good Eye Contact, Cooperative, Polite, Good Interaction; No Unkept, No Tearful, No Psychomotor Agitation, No Psychomotor Retardation, No Bizarre Mannerisms, No Tics Speech: Clear, Spontaneous, Normal Rate, Normal Rhythm, Normal Volume, Normal Tone; No Delayed, No Slurred, No Garbled, No Rambling, No Inappropriate; Other (Nicaraguan accent) Mood: Euthymic (Frustration with situation ongoing) Affect: Full and Appropriate, Calm; No Withdrawn, No Tearful, No Anxious, No Agitated Thought Process: Organized, Logical, Goal Directed; No Loose Associations, No Flight of Ideas Thought Content: No Suicidal Ideation, No Homicidal Ideation, No Delusions, No Auditory Halllucinations, No Visual Hallucinations, No Thought Broadcasting, No Ideas of Reference, No Obsessions, No Compulsions, No Other Sensorium: Clear Cognition: Alert & Oriented-Person, Alert & Oriented-Place, Alert & Oriented- Time, Jndox-[id number]-[id number] Memory: Immediate, Recent, Remote Intelligence: Above Average Insight Judgment: Fair (Patient taking an active role in his treatment.) [facility] Assessment and Plan [id number] Encounter Date: Apr 02, 2018 [id number] Encounter Time: 10:30 [facility] Plan: Admit to Unit, Necessary Precautions, Individual/Group Therapy, Admin/Titrate Meds, Educate Patient Tobacco Medications: Not Appropriate Condition Multpiple Antipsychotics Used: No Problems: (1) Adjustment disorder with mixed anxiety and depressed mood Status: Acute (2) Persistent depressive disorder Status: Chronic Condition 1. continue treatment. 2. consider increase in Lamictal. 3. hearing tomorrow, followed by hopeful discharge. FIDELIA AYALA MD Apr 02, 2018 11:15
[2018-04-02 13:10] VITALS: BP 110/68
[2018-04-03 06:17] VITALS: BP 106/78
[2018-04-03] MEDS: MULTIVITAMINS PO SCH (07:58)
[2018-04-03] MEDS: lamoTRIgine 25 MG TAB PO SCH (07:58)
[2018-04-03] MEDS: CHOLECALCIFEROL 1000 UNIT TAB PO SCH (07:58)
[2018-04-03] MEDS ORDERED: MULT-1379 PO (12:25)
[2018-04-03] MEDS ORDERED: CHOL10005 PO (12:25)
[2018-04-03] MEDS ORDERED: LAMO25TA64 PO (12:25)
[2018-04-03 12:40] VITALS: BP 116/68
--- NOTE | 2018-04-03 23:33 | SCHAAF DISCHARGE ---
DATE OF ADMISSION: March 24, 2018 DATE OF DISCHARGE: April 03, 2018 ATTENDING PHYSICIAN Artie Gabriel MD Patient was seen at approximately 1100 hours on the date of April 03, 2018, for note concerning this dictation. FINAL DIAGNOSES 1. Adjustment disorder with depressed mood. 2. Persisting depressive disorder. 3. Patient has supportive relationship with girlfriend. REASON FOR ADMISSION Please see H and P and notes while patient was on the unit. 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 The professor has been notified of these thoughts against her per Carlos. Patient was admitted without incident. Patient reports paying attention to his thoughts in his head, which does not seem to be representing a psychosis while on the unit, but more of an ongoing way he describes his own thoughts in a patient who has mildly limited Haitian capability. Patient on the unit did admit to having thoughts in the heat of the moment of self-harm as well as harm toward his professor. However, when asked if patient thought he could ever go through with it, patient said, "No." Patient reported he was trying to get help and trying to be open and honest with providers, and describing the suicidal and homicidal thoughts certainly warranted the admission here at the [facility] for further evaluation. During patient's stay on the unit, patient remained very calm, cooperative, and polite, not demonstrating any parasuicidal behaviors or aggression toward staff or others. Patient not focusing on his professor at the [employer] either, and patient overall in bright spirits. Patient was placed on Lamictal, started at low dose to watch for any rash specifically in this case as patient is of descent. Patient continued to improve on the unit, interacted very well with his girlfriend throughout his stay, as well as other patients on the unit. Patient also demonstrating an ability to play the piano well in the atrium of the hospital, and no evidence of any psychosis or other thought disorder existed. I was notified by the [facility] that patient would be banned from trespassing on university property, and this included his own apartment where he had been living until they could further evaluate if they would allow the patient to eventually return to campus. At this time, off campus housing was found in the form of living with a friend, and patient agreed to this. Patient was due to be discharged from the emergency detainment he was under as patient was deemed a very minimal risk to himself or others at time of discharge. However, for reasons not fully understood, the divorce attorney had requested a hearing be put in place to a let a physical design engineer determine if the patient could be released from the hospital. This eventually took place. Patient was released from the hospital. Again, through stay, patient's appetite, sleep, and mood were good, patient interacting very well, and patient tolerant of stressors of awaiting university proceedings. Patient able to demonstrate hypothetically thinking about not returning to the university at all, but instead returning to [facility] and patient accepting of this. 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 Patient's girlfriend present at time of discharge also indicating a full understanding and has no reservations about patient's discharge. She does not feel he is a danger to himself or others It is also worthy of note that the patient has been with his girlfriend for about a year. Please see H and P and other notes and risk assessment by Dr. Koki Veras concerning this patient. PHYSICAL EXAMINATION Please see emergency room note. Notable for: GENERAL: Calm, 22-year-old male with no acute medical distress. VITAL SIGNS: Vital signs at the time of admission, temperature 98.6, pulse 103, respiratory rate 20, blood pressure 139/83, and pulse oximetry 95% on room air. At time of discharge from [facility], vital signs showed temperature 99.6, pulse 91, respiratory rate 16, blood pressure 116/68, and pulse oximetry 97% on room air. LABORATORY DATA CBC at time of admission was unremarkable. CMP unremarkable. TSH 1.30. Urinalysis unremarkable. Toxicology screen negative with an undetectable serum alcohol level. MENTAL STATUS EXAMINATION AT TIME OF DISCHARGE GENERAL APPEARANCE, BEHAVIOR, AND ATTITUDE: This is a very polite, 22-year-old male smiling broadly at this provider, interacting well with this provider and other treatment team staff, and including his girlfriend of one year. Patient have not periods of tearfulness, no bizarre mannerisms or tics, making good eye contact. SPEECH: Considered baseline in this patient with heavy Bhutanese accent. MOOD: Described as improved and good. AFFECT: Full and bright. THOUGHT PROCESSES: Appear goal directed, logical, patient asking questions about outpatient treatment in a very logical manner. No loose associations or flight of ideas. THOUGHT CONTENT: Free of auditory or visual hallucinations, ideas of reference, thought broadcastings, delusions, obsessions, compulsions. The patient adamantly denying suicidal or homicidal ideation, specifically denying homicidal ideation when specifically about the music ministries director where homicidal ideation had been earlier directed. Patient notably affect not changing when addressing this person's name as well, and again, patient adamantly denying suicidal or homicidal ideation toward this professor or anyone else. SENSORIUM: Clear. COGNITION: Alert and oriented to person, place, time, and situation. MEMORY: Immediate, recent, remote estimated intact. INTELLIGENCE: Average to above based on multiple interviews. INSIGHT AND JUDGMENT: Considered grossly intact and appropriate for outpatient management. RESULTS OF TESTING IMAGING: None. LABORATORY DATA: See above. CONSULTATIONS None. TREATMENT Patient received medications, participated in individual and group therapy. HOSPITAL COURSE Patient was very open to care, took an active role in his treatment throughout his stay. It was thought in the end that SSRIs may not be the best choice in this patient, who may have more negative symptoms than benefits from SSRIs. Patient was started on Lamictal at low dose because of descent and higher risk for rash. Patient was titrated to 25 mg Lamictal and would continue this on an outpatient basis. Patient stable with no depressive or manic-like symptoms at time of discharge and considered a minimal risk to himself or others. DISPOSITION Patient discharged to home in care of significant other. Patient would live with friend off campus as he awaited further determination of educational status by the university. Patient agreed to follow up locally with outpatient therapy and further medication management. Crisis line was given should symptoms return. Patient would remain vigilant of potential rash while being on low-dose Lamictal and avoid SSRIs, illicit substances, and alcohol. Risks, benefits, and alternatives of above discharge plan were discussed. Informed consent was given to proceed with above discharge plan by this patient, patient's girlfriend, direction of the court, and university staff who are aware of patient's discharge. MEDICATIONS AT TIME OF DISCHARGE 1. Lamictal 25 mg q.a.m. 2. Multivitamin with minerals daily. 3. Vitamin D3 1000 International Units daily. 4. Patient would not take any SSRIs or Ambien, stop any SSRIs that he had in his possession, patient agreeing to script of Lexapro that patient was on from [facility] remain here to be disposed of. MTDD
== END 2018-04-03 14:50 | disposition home or self-care (01) | DRG 882 ==
LOC: BHS 13:30
PROVIDERS: ADMIT Psychiatry & Neurology Psychiatry; ATTEND Psychiatry & Neurology Psychiatry
DX: F43.23 Adjustment disorder with mixed anxiety and depressed mood (principal); R45.851 Suicidal ideations; F34.1 Dysthymic disorder; R45.850 Homicidal ideations; T43.225A Adverse effect of selective serotonin reuptake inhibitors, initial encounter; G47.00 Insomnia, unspecified; Z97.3 Presence of spectacles and contact lenses; F41.0 Panic disorder [episodic paroxysmal anxiety]
CPT/HCPCS: Q0177